=== PATIENT | male | born 1985 | race Caucasian/White ===

== ENCOUNTER 2023-02-07 01:59 | Emergency (ER) | payer BC ==
[~2023-02-07] VITALS: Ht 188 cm; Wt 99.8 kg
[2023-02-07] MEDS ORDERED: predniSONE 20 MG TABLET ONE (02:53)
[2023-02-07] MEDS ORDERED: KETOROLAC TROMETHAMINE INJ 30 MG/ML VIAL ONE (02:53)
[2023-02-07] MEDS ORDERED: KETO10TA2 PO (02:57)
[2023-02-07] MEDS ORDERED: predniSONE 50 MG TABLET PO ONE (03:00)
[2023-02-07] MEDS ORDERED: KETOROLAC TROMETHAMINE INJ 30 MG/ML VIAL IM ONE (03:00)
[2023-02-07 03:30] VITALS: BP 180/99; TEMP 99.5; O2SAT 96
== END 2023-02-07 03:30 | disposition home or self-care (01) ==
LOC: ER 02:22
DX: M10.9 Gout, unspecified (principal); E11.9 Type 2 diabetes mellitus without complications; Z79.899 Other long term (current) drug therapy
CPT/HCPCS: 99283; 96372; J7512; J1885